=== PATIENT | female | born 1975 | race Caucasian/White ===

== ENCOUNTER 2023-03-18 11:00 | Day surgery (SDC) | payer MEDICAID ==
[~2023-03-18 11:00] MED LIST: Midazolam 1 MG/ML 2 ML SDV ONE; Propofol 200 MG/20 ML SDV ONE; fentaNYL 50 MCG/ML SDV ONE
[2023-03-18] MEDS ORDERED: Sodium Chloride 0.9% 1,000 ML IV SCH (11:15)
== END 2023-03-18 13:30 | disposition home or self-care (01) ==
LOC: JP.SDS 11:00
PROVIDERS: ATTEND Surgery
DX: Z12.11 Encounter for screening for malignant neoplasm of colon (principal); G47.33 Obstructive sleep apnea (adult) (pediatric)
CPT/HCPCS: 45378; J2250; J2704; J3010; J7030